=== PATIENT | male | born 1995 | race Hispanic/Latino ===

== ENCOUNTER 2016-10-21 20:55 | Emergency (ER) | payer OTHER ==
[~2016-10-21] VITALS: Ht 170.2 cm; Wt 71.2 kg
[~2016-10-21 20:55] MED LIST: MELOXICAM7.5 MG PO; NAPROSYN500 MG PO; ZOFRAN ODT4 MG SL
[2016-10-21] MEDS ORDERED: NAPROSYN500 MG PO (21:41)
[2016-10-21 21:50] VITALS: BP 125/80
== END 2016-10-21 21:50 | disposition home or self-care (01) | DRG 563 ==
LOC: ED 20:55
DX: S93.401A Sprain of unspecified ligament of right ankle, initial encounter (principal); M25.471 Effusion, right ankle; S93.601A Unspecified sprain of right foot, initial encounter; Y93.89 Activity, other specified; Y92.89 Other specified places as the place of occurrence of the external cause

== ENCOUNTER 2018-05-15 12:02 | Emergency (ER) | payer OTHER ==
[~2018-05-15] VITALS: Ht 170.2 cm; Wt 68.1 kg
[2018-05-15 13:17] VITALS: BP 160/70
== END 2018-05-15 13:26 | disposition home or self-care (01) ==
LOC: ED 12:02
DX: S61.215A Laceration without foreign body of left ring finger without damage to nail, initial encounter (principal); W26.8XXA Contact with other sharp object(s), not elsewhere classified, initial encounter; Y93.89 Activity, other specified; Y92.007 Garden or yard of unspecified non-institutional (private) residence as the place of occurrence of the external cause